=== PATIENT | female | born 1960 | race Caucasian/White ===

== ENCOUNTER → 2016-11-19 | Outpatient (CLI) | payer BC ==
--- NOTE | 2016-11-20 10:18 | MM ---
Reason for exam: screening (asymptomatic). Last mammogram was performed 1 year and 10 months ago. History: Patient is postmenopausal and has history of other cancer at age 44. Took hormonal contraceptives for 10 years. Physical Findings: A clinical breast exam by your physician is recommended on an annual basis and results should be correlated with mammographic findings. MG 3D Screening Mammo W/Cad Bilateral CC and MLO view(s) were taken. Prior study comparison: January 07, 2015, bilateral MG 3d screening mammo w/cad. July 01, 2012, bilateral digital screening mammo w/CAD. There are scattered fibroglandular densities. There is no discrete abnormality. No significant changes when compared with prior studies. ASSESSMENT: Negative, BI-RAD 1 RECOMMENDATION: Routine screening mammogram of both breasts in 1 year.
== END | disposition home or self-care (01) ==
LOC: RADMAMWWP 16:19
PROVIDERS: ATTEND Family Medicine
DX: Z12.31 Encounter for screening mammogram for malignant neoplasm of breast (principal)
CPT/HCPCS: 77063; G0202

== ENCOUNTER 2017-01-30 11:34 | Day surgery (SDC) | payer BC ==
[2017-01-28 11:43] VITALS: BMI 26.6
[~2017-01-30 11:34] MED LIST: LACTATED RINGERS 1,000 ML IV SCH; LIDOCAINE 1% 20 ML VIAL (10MG/ML) FOR IV START INTRADERMA PRN
[2017-01-30 13:16] VITALS: TEMP 97.6
[2017-01-30] MEDS ORDERED: PROPOFOL 10 MG/ML 20 ML VIAL IV ONE (14:02)
--- NOTE | 2017-01-30 14:11 | P.GSHP ---
History of Present Illness H&P Date: 01/30/17 Chief Complaint: Screening colonoscopy This is a 56-year-old female who presents today for screening colonoscopy. Her last colonoscopy was a prostate 4 years ago. She had a colon polyp at that time. Past Medical History Past Medical History: No Reported History History of Any Multi-Drug Resistant Organisms: None Reported Past Surgical History: Hysterectomy Past Anesthesia/Blood Transfusion Reactions: No Reported Reaction Smoking Status: Never smoker - Past Family History Father Family Medical History: Cancer Additional Family Medical History / Comment(s): leukemia Medications and Allergies Home Medications Medication Instructions Recorded Confirmed Type Cholecalciferol [Vitamin D3] 1,000 unit PO DAILY 01/28/17 01/30/17 History Glucosam/Ziggy-Msm1/C/Zeb/Bosw 1 each PO DAILY 01/28/17 01/30/17 History [Glucosamine-Chondroitin Tablet] Allergies Allergy/AdvReac Type Severity Reaction Status Date / Time No Known Allergies Allergy Verified 01/28/17 11:39 Surgical - Exam Vital Signs Temp Pulse Resp BP Pulse Ox 97.6 F 77 16 137/77 99 01/30/17 13:15 01/30/17 13:15 01/30/17 13:15 01/30/17 13:15 01/30/17 13:15 - General well developed, no distress - Eyes PERRL - ENT normal pinna - Neck no masses - Respiratory normal expansion - Cardiovascular Rhythm: regular - Abdomen Abdomen: soft, non tender Assessment and Plan Assessment: History of colon Polyp. We'll perform colonoscopy.
--- NOTE | 2017-01-30 14:32 | P.OP ---
Date of Procedure: 01/30/17 Preoperative Diagnosis: Screening colonoscopy Postoperative Diagnosis: Rectal polyp Procedure(s) Performed: Colonoscopy Anesthesia: MAC Surgeon: Venkatesh Sterling Pathology: other (Rectal polyp) Condition: stable Disposition: PACU Description of Procedure: The patient's placed on the endoscopy table in the lateral position. She received IV sedation. Digital rectal exam was performed which revealed no abnormalities. The flexible colonoscope was then placed patient anus and passed throughout the entire colon. The ileocecal valve was visualized. The cecum ascending and transverse colon appeared normal. The descending and; was normal. Scope was then brought back the rectum and this appeared normal except for a small hyperplastic polyp and this is removed with a forcep. Scope was withdrawn for patient.
[2017-01-30 14:33] VITALS: RESP 18
[2017-01-30 15:11] VITALS: BP 139/67; PULSE 58
--- NOTE | 2017-02-06 05:25 | CDI ---
Date: 02/06/17 CDS/Supervisor [employer] Name: Mickie Navarrete Phone: If you have a question, contact Maru Saleem, Salon Manager at M-F 8:30 am to 6pm. Patient Name: Maru Kaiser Admit Date: 01/30/17 Discharge Date: 01/30/17 ATTENTION: The Clinical Documentation Specialists (CDI) and [facility] Coding Staff appreciate your assistance in clarifying documentation. Please respond to the clarification below the line at the bottom and electronically sign. The CDI & [facility] Coding staff will review the response and follow-up if needed. Please note: Queries are made part of the Legal Health Record. If you have any questions, please contact the author of this message via ITS or call the Salon Manager. Dr. Sterling, Please provide clarification whether the polyp was removed with hot or cold forceps. Thank you for your assistance. cold forcep MTDD
== END 2017-01-30 15:29 | disposition home or self-care (01) ==
LOC: ORWHC2ENDO 11:34
PROVIDERS: ATTEND Surgery
DX: Z12.11 Encounter for screening for malignant neoplasm of colon (principal); K62.1 Rectal polyp; Z86.010 Personal history of colon polyps; Z80.6 Family history of leukemia
CPT/HCPCS: 88305; 45380; J2704

== ENCOUNTER → 2017-11-22 | Outpatient (CLI) | payer BC ==
--- NOTE | 2017-11-26 09:42 | MM ---
Reason for exam: screening (asymptomatic). Last mammogram was performed 1 year ago. History: Patient is postmenopausal and has history of other cancer at age 44. Took hormonal contraceptives for 10 years. Physical Findings: A clinical breast exam by your physician is recommended on an annual basis and results should be correlated with mammographic findings. MG 3D Screening Mammo W/Cad Bilateral CC and MLO view(s) were taken. Prior study comparison: November 19, 2016, bilateral MG 3d screening mammo w/cad. January 07, 2015, bilateral MG 3d screening mammo w/cad. The breast tissue is heterogeneously dense. This may lower the sensitivity of mammography. No significant changes when compared with prior studies. ASSESSMENT: Negative, BI-RAD 1 RECOMMENDATION: Routine screening mammogram of both breasts in 1 year.
== END | disposition home or self-care (01) ==
LOC: RADMAMWWP 16:39
PROVIDERS: ATTEND Family Medicine
DX: Z12.31 Encounter for screening mammogram for malignant neoplasm of breast (principal)
CPT/HCPCS: 77063; 77067

== ENCOUNTER 2018-04-04 08:39 | Day surgery (SDC) | payer BC ==
[2018-04-03 08:34] VITALS: BMI 26.6
--- NOTE | 2018-04-04 05:03 | HP ---
HISTORY AND PHYSICAL CHIEF COMPLAINT: Fluid in the left ear. HISTORY OF THE PRESENT ILLNESS: This patient is a 57-year-old female who was recently seen in my office complaining of having a plugged sensation mainly in her left ear for approximately 10 days. She stated that she had been previously placed on prednisone and Augmentin without any significant improvement. She has a history of seasonal allergies. At the time that she was seen in my office clinical examination of the ears revealed the left tympanic membrane was dull with evidence of definite fluid in the left middle ear space and the right tympanic membrane was retracted suggesting negative pressure in the right ear. The patient was placed on a 10-day course of dexamethasone and was seen back for followup. Approximately 10 days later, the patient returned for a clinical recheck and at that time, she stated that the left ear was worse and in fact the right ear had seemed to be plugged. Clinical examination revealed she now had chronic bilateral serous otitis media so-called glue ears. It was recommended that the patient undergo a bilateral myringotomy with insertion of ventilation tubes under IV sedation MAC. PAST MEDICAL HISTORY: Past medical history reveals that she has no allergies to medications. Her only current medications are wtby-tsr-xyrexbe vitamins. She has a possible allergy to RITALIN. Previous surgeries include a total hysterectomy, removal of skin cancer. She has 3 para, 3 , 0 miscarriage. REVIEW OF SYSTEMS: The review of systems is essentially unremarkable. PHYSICAL EXAMINATION: This patient is a very pleasant 57-year-old female who is alert and cooperative. HEENT EXAMINATION: Patient is normocephalic. Both tympanic membranes appear to be dull with fluid in both middle ear spaces. Pupils are equal, round, reactive to light and accommodation. Extraocular movements are within normal limits. Intranasal examination reveals moderate to severe septal deviation to the left with bilateral compensatory hypertrophy of the inferior turbinates. There is a moderate amount of clear mucus on the mucous membranes draining down the posterior pharynx. Palpation of the neck, cranial nerves 2 through 12 and the remainder of the head and neck exam are all within normal limits. CHEST/CARDIOVASCULAR: Both lung sinclair are clear to percussion and auscultation. The patient is in regular sinus rhythm. S1, S2 are present without evidence of any murmurs S3s or S4. ABDOMEN: There is no evidence of any masses, megaly or tenderness. The abdomen is soft. Skin is unremarkable. Musculoskeletal and neurological are within normal limits. PELVIC/RECTAL EXAM: The pelvic and rectal exam is deferred at this time because the patient has this done on a regular basis at her family physician's office. The remainder of physical exam is essentially unremarkable. IMPRESSION: Chronic bilateral serous otitis media. PLAN: The patient is scheduled to undergo a bilateral myringotomy with insertion of ventilation tubes under general anesthesia. ATTENTION RNS IN THE PRE-SURGICAL AREA: I have not ordered any pre-surgical prophylactic antibiotics for this patient. If the pharmacy department sends any pre- surgical prophylactic antibiotics to the pre-surgical area for this patient, that order should be cancelled, the medication should be returned to the pharmacy, and make sure that the patient's account is credited appropriately. I have discussed the risks, benefits and alternative therapies for the above-mentioned procedure and for both sedation/analgesia as well as necessary blood product administration, if indicated, as they pertain to this patient. The patient has indicated his or her understanding and acceptance of the risks and procedures discussed. MMODL / IJN: [id number] /
[~2018-04-04 08:39] MED LIST changes: +HYDROmorphone 0.5 MG/0.5 ML SYRINGE IVP PRN; +MIDAZOLAM 2 MG/2 ML VIAL IV PRN; +ONDANSETRON 4 MG/2 ML VIAL IVP PRN; +Pre Op ABX Message 1 EACH MISC MISCELLANE ONE
[2018-04-04] MEDS ORDERED: LACTATED RINGERS 1,000 ML IV ONE (09:12)
[2018-04-04] MEDS ORDERED: OFLOXACIN 0.3% OTIC DROPS 5 ML BTL BOTH EARS ONE (09:43)
[2018-04-04] MEDS ORDERED: fentaNYL (PF) 50 MCG/ML 2 ML AMP ONE (10:16)
[2018-04-04] MEDS ORDERED: MIDAZOLAM 2 MG/2 ML VIAL ONE (10:16)
[2018-04-04] MEDS ORDERED: PROPOFOL 10 MG/ML 20 ML VIAL IV ONE (10:16)
[2018-04-04] MEDS ORDERED: IV FLUID CONTINUATION 1,000 ML IV ONE (11:03)
[2018-04-04 11:09] VITALS: TEMP 97.4
[2018-04-04 11:57] VITALS: BP 123/77; PULSE 69; RESP 16
--- NOTE | 2018-04-07 22:01 | OP ---
OPERATIVE REPORT DATE OF SURGERY: 04/04/2018 PREOPERATIVE DIAGNOSIS: Chronic bilateral serous otitis media. POSTOPERATIVE DIAGNOSIS: Chronic bilateral serous otitis media. ANESTHESIA: General. OPERATIVE PROCEDURE: Bilateral myringotomy with insertion of Activent ventilation tubes. SURGEON: Dr. Cavazos. COMPLICATIONS: None. PROCEDURE: The patient was placed on the Operating table in the supine position after uneventful induction and IV sedation, satisfactory general anesthesia was obtained. Next, the operating microscope was brought into position over the patient's right ear where after insertion of a #3 aural speculum, the external canal was cleansed of all wax and debris. The myringotomy knife was used to make an incision in the anterior inferior quadrant of the right tympanic membrane. The middle ear space was suctioned free of all fluid and a 1.1 mm Ashleigh bobbin ventilation tube was inserted without any difficulty. Attention was then directed to the left ear where the same procedure was carried out using the operating microscope, #3 aural speculum, the external auditory canal was cleansed of all wax and debris. The myringotomy knife was used to make an incision in the anterior inferior quadrant of the left tympanic membrane and the middle ear space was suctioned free of all fluid. A 1.1 mm Ashleigh bobbin ventilation tube was inserted without any difficulty. At this point, the procedure was terminated. There were no intraoperative complications. The patient tolerated the procedure well and was returned to the Recovery Room in satisfactory condition. MMODL / IJN: [id number] /
== END 2018-04-04 12:10 | disposition home or self-care (01) ==
LOC: OR 08:39
PROVIDERS: ATTEND Otolaryngology
DX: H65.23 Chronic serous otitis media, bilateral (principal); J30.2 Other seasonal allergic rhinitis; Z90.710 Acquired absence of both cervix and uterus; Z85.828 Personal history of other malignant neoplasm of skin
CPT/HCPCS: 69436; J2250; J2405; J3010; J2704

== ENCOUNTER 2018-12-03 21:39 | Observation (INO) | payer BC ==
[2018-12-03 21:42] VITALS: RESP 18
[2018-12-03] MEDS ORDERED: ASPIRIN 81 MG PO STA (21:44)
[2018-12-03 22:03] LABS: Basophils # (A) 0.1 k/uL (0-0.2); Basophils % (A) 1 %; Eosinophils # (A) 0.2 k/uL (0-0.7); Eosinophils % (A) 3 %; HCT 39.7 % (34.0-46.0); HGB 13.8 gm/dL (11.4-16.0); Lymphocytes # (A) 2.1 k/uL (1.0-4.8); Lymphocytes % (A) 30 %; MCH 31.3 pg (25.0-35.0); MCHC 34.7 g/dL (31.0-37.0); MCV 90.2 fL (80.0-100.0); Mean Platelet Volume 6.2; Monocytes # (A) 0.5 k/uL (0-1.0); Monocytes % (A) 6 %; Neutrophils # (A) 4.1 k/uL (1.3-7.7); Neutrophils % (A) 58 %; Platelet Count 308 k/uL (150-450); RDW 12.1 % (11.5-15.5); WBC 7.1 k/uL (3.8-10.6)
[2018-12-03 22:09] LABS: Albumin 4.4 g/dL (3.5-5.0); Total Bilirubin 0.5 mg/dL (0.2-1.3); Total Protein 7.2 g/dL (6.3-8.2)
[2018-12-03 22:12] LABS: INR 0.9 (<1.2); Partial Thromboplastin Time 23.6 sec (22.0-30.0); Prothrombin Time 9.5 sec (9.0-12.0)
--- NOTE | 2018-12-03 22:25 | XR ---
EXAMINATION TYPE: XR chest 2V DATE OF EXAM: 12/03/2018 COMPARISON: NONE HISTORY: Chest pain TECHNIQUE: Frontal and lateral views of the chest are obtained. FINDINGS: Heart and mediastinum are normal. Lungs are clear. Diaphragm is normal. There is small nick cified granuloma lateral aspect of the right upper lobe. Bony thorax is intact. There is minimal scar ring at the lung apices. IMPRESSION: No active cardiopulmonary disease. Normal heart.
[2018-12-03 22:26] LABS: Calcium 9.5 mg/dL (8.4-10.2); Magnesium 1.9 mg/dL (1.6-2.3); Potassium 3.4 mmol/L (3.5-5.1)
[2018-12-03] MEDS ORDERED: NITROGLYCERIN SL TABS 0.4 MG TAB SUBLINGUAL PRN (23:43)
--- NOTE | 2018-12-03 23:43 | ED ---
Chest Pain HPI - General Chief Complaint: Chest Pain Stated Complaint: chest pain Time Seen by Provider: 12/03/18 21:43 Source: patient Mode of arrival: ambulatory Limitations: no limitations - History of Present Illness Initial Comments: Maru is a 58-year-old female presents to the emergency department today for evaluation of left-sided and retrosternal pressure-like chest pain. Patient reports that approximately 3 hours prior to arrival she developed significant pain in the left chest with associated shortness of breath but no diaphoresis or lightheadedness. Patient reports that pain is been constant since that time. She has no history of any cardiac disease pulmonary disease DVT or PE. She's never experienced chest pain like this in the past. She cannot identify any exacerbating or relieving factors. She does feel slightly more comfortable and sitting up. - Related Data Home Medications Medication Instructions Recorded Confirmed Aspirin EC [Ecotrin Low Dose] 81 mg PO DAILY 12/03/18 12/03/18 Cetirizine HCl [Zyrtec] 10 mg PO DAILY 12/03/18 12/03/18 Cholecalciferol [Vitamin D3 (25 1,000 unit PO DAILY 12/03/18 12/03/18 Mcg = 1000 Iu)] Escitalopram [Lexapro] 5 mg PO DAILY 12/03/18 12/03/18 Fish Oil/Dha/Epa [Fish Oil 1,200 1 cap PO DAILY 12/03/18 12/03/18 mg Fish Oil] Glucosamine Sulfate 500 mg PO DAILY 12/03/18 12/03/18 Lifitegrast [Xiidra] 1 drop BOTH EYES BID 12/03/18 12/03/18 Methylphenidate HCl [Ritalin] 20 mg PO TID 12/03/18 12/03/18 Ubidecarenone [Co Q-10] 200 mg PO DAILY 12/03/18 12/03/18 Allergies Allergy/AdvReac Type Severity Reaction Status Date / Time No Known Allergies Allergy Verified 12/03/18 22:51 Review of Systems ROS Statement: Those systems with pertinent positive or pertinent negative responses have been documented in the HPI. ROS Other: All systems not noted in ROS Statement are negative. Past Medical History Past Medical History: Cancer Additional Past Medical History / Comment(s): hx skin cancer, History of Any Multi-Drug Resistant Organisms: None Reported Past Surgical History: Ear Surgery, Hysterectomy Past Anesthesia/Blood Transfusion Reactions: No Reported Reaction Past Psychological History: No Psychological Hx Reported Smoking Status: Never smoker Past Alcohol Use History: None Reported Past Drug Use History: None Reported - Past Family History Father Family Medical History: Cancer Additional Family Medical History / Comment(s): leukemia General Exam - General Exam Comments Initial Comments: Physical Exam GENERAL: Patient is well-developed and well-nourished. Patient is nontoxic and well- hydrated and is in no distress. HENT: Normocephalic, Atraumatic. EYES: PERRL, EOMI PULMONARY: Unlabored respirations. No audible rales rhonchi or wheezing was noted. CARDIOVASCULAR: There is a regular rate and rhythm without any murmurs gallops or rubs. ABDOMEN: Soft and nontender with normal bowel sounds. SKIN: Skin is clear with no lesions or rashes and otherwise unremarkable. : Deferred NEUROLOGIC: Patient is alert and oriented x3. Moving all extremities spontaneously MUSCULOSKELETAL: Normal extremities with adequate strength and full range of motion. No lower extremity swelling or edema. No calf tenderness. PSYCHIATRIC: Normal psychiatric evaluation. Limitations: no limitations Course Vital Signs 12/03/18 12/03/18 12/03/18 21:40 22:00 23:07 Temperature 97.8 F Pulse Rate 74 56 L 63 Respiratory 18 18 18 Rate Blood Pressure 148/79 137/79 136/67 O2 Sat by Pulse 99 97 97 Oximetry 12/04/18 00:30 Temperature 97.5 F L Pulse Rate 55 L Respiratory 18 Rate Blood Pressure 141/67 O2 Sat by Pulse 96 Oximetry Chest Pain MDM - MDM The patient was seen and evaluated upon arrival the emergency department this is a 58-year-old female with no cardiac history presenting with a sided chest pain EKG was nonischemic Cardiac workup was initiated D-dimer is negative initial troponin is negative chest x-ray is unremarkable Given the patient's age persistent left-sided chest pain we will plan to place her in observation for further evaluation by cardiology. Patient is agreeable. Patient care was discussed with Dr. Hou who agrees with plan. Admission orders, serial troponins, repeat EKG and echo for the morning were ordered. Disposition Clinical Impression: Chest pain Disposition: ADMITTED IP TO THIS HOSP Condition: Stable
[2018-12-04 04:10] LABS: Cholesterol 211 mg/dL (<200); HDL Cholesterol 66 mg/dL (40-60); LDL Cholesterol,Calculated 129 mg/dL (0-99); Triglycerides 80 mg/dL (<150)
[2018-12-04] MEDS ORDERED: HYDROcodone/APAP 5-325MG 1 EACH TAB PO PRN (07:11)
[2018-12-04 07:47] VITALS: PULSE 58
[2018-12-04] MEDS ORDERED: ASPIRIN 81 MG PO SCH (09:00)
[2018-12-04] MEDS ORDERED: ASPIRIN 325 MG TAB PO SCH (09:00)
--- NOTE | 2018-12-04 11:03 | P.CRDCN ---
History of Present Illness History of present illness: This is a pleasant 58-year-old female in no significant past medical history. She denies history of coronary artery disease, hypertension, dyslipidemia or diabetes mellitus. She does not follow with a rib puller for any reason. She is seen and examined resting comfortably in bed undergoing an echocardiogram. She states yesterday while laying down watching television approximately 1 hours after eating she felt a heavy burning sensation in the left precordial region. There was no radiation to the arm, back, neck or jaw. She felt a fluttering sensation in the base of her neck and felt mildly short of breath. The discomfort intensified with deep inspiration and hurts when she moves her torso. EKG reveals sinus mechanism with no acute ST or T-wave abnormalities. Chest xray is negative for an acute cardiopulmonary process. Laboratory data reviewed, CBC unremarkable, d-dimer 0.28, sodium 139, potassium 3.4, creatinine 1.08, AST 48, ALT 42, cardiac enzymes negative 3, LDL 129. She takes no daily cardiac medications. At the time of my exam: CONSTITUTIONAL: Denies fever. Denies chills. EYES: Denies blurred vision. Denies vision changes. Denies eye pain. EARS, NOSE, MOUTH & THROAT: Denies headache. Denies sore throat. Denies ear pain. CARDIOVASCULAR: Complains of pleuritic chest pain. Denies shortness of breath. Denies orthopnea. Denies PND. Denies palpitations. RESPIRATORY: Denies cough. GASTROINTESTINAL: Denies abdominal pain. Denies diarrhea. Denies constipation. Denies nausea. Denies vomiting. MUSCULOSKELETAL: Denies myalgias. INTEGUMENTARY: Denies pruitis. Denies rash. NEUROLOGIC: Denies numbness. Denies tingling. Denies weakness. PSYCHIATRIC: Denies anxiety. Denies depression. ENDOCRINE: Denies fatigue. Denies weight change. Denies polydipsia. Denies polyurina. GENITOURINARY: Denies burning, hematuria or urgency with micturation. HEMATOLOGIC: Denies history of anemia. Denies bleeding. Blood pressure 119/73 heart rate 58 afebrile maintaining oxygen saturation on room air GENERAL: This is a 58-year-old female in no apparent distress at the time of my examination. HEENT: Head is atraumatic, normocephalic. Pupils are equal, round. Sclerae anicteric. Conjunctivae are clear. Mucous membranes of the mouth are moist. Neck is supple. There is no jugular venous distention. No carotid bruit is heard. LUNGS: Clear to auscultation no wheezes, rales or rhonchi. Positive chest wall tenderness is noted on palpation and with deep breathing. HEART: Regular rate and rhythm without murmurs, rubs or gallops. S1 and S2 heard. ABDOMEN: Soft, nontender. Bowel sounds are heard. No organomegaly noted. EXTREMITIES: No evidence of peripheral edema and no calf tenderness noted. VASCULAR: Radial and dorsalis pedis pulses palpated, no evidence of clubbing. NEUROLOGIC: Patient is awake, alert and oriented x3. ASSESSMENT Pleuritic chest pain, atypical for angina. An acute coronary event has been ruled out. Elevated liver enzymes, unknown etiology Dyslipidemia PLAN An acute coronary event has been ruled out. Pain is atypical for angina with pleuritic features and reproducible on palpation. Echocardiogram has been obtained and will be reviewed. Ongoing medical management and evaluation. Thank you kindly for this consultation. Nurse Practitioner note has been reviewed, I agree with a documented findings and plan of care. Patient was seen and examined. Past Medical History Past Medical History: Cancer Additional Past Medical History / Comment(s): hx skin cancer, History of Any Multi-Drug Resistant Organisms: None Reported Past Surgical History: Ear Surgery, Hysterectomy Past Anesthesia/Blood Transfusion Reactions: No Reported Reaction Past Psychological History: No Psychological Hx Reported Smoking Status: Never smoker Past Alcohol Use History: None Reported Past Drug Use History: None Reported - Past Family History Father Family Medical History: Cancer Additional Family Medical History / Comment(s): leukemia Medications and Allergies Home Medications Medication Instructions Recorded Confirmed Type Aspirin EC [Ecotrin Low Dose] 81 mg PO DAILY 12/03/18 12/03/18 History Cetirizine HCl [Zyrtec] 10 mg PO DAILY 12/03/18 12/03/18 History Cholecalciferol [Vitamin D3 (25 1,000 unit PO DAILY 12/03/18 12/03/18 History Mcg = 1000 Iu)] Escitalopram [Lexapro] 5 mg PO DAILY 12/03/18 12/03/18 History Fish Oil/Dha/Epa [Fish Oil 1,200 1 cap PO DAILY 12/03/18 12/03/18 History mg Fish Oil] Glucosamine Sulfate 500 mg PO DAILY 12/03/18 12/03/18 History Lifitegrast [Xiidra] 1 drop BOTH EYES BID 12/03/18 12/03/18 History Methylphenidate HCl [Ritalin] 20 mg PO TID 12/03/18 12/03/18 History Ubidecarenone [Co Q-10] 200 mg PO DAILY 12/03/18 12/03/18 History Allergies Allergy/AdvReac Type Severity Reaction Status Date / Time No Known Allergies Allergy Verified 12/03/18 22:51 Physical Exam Vitals: Vital Signs Temp Pulse Pulse Resp BP BP Pulse Ox 12/04/18 07:46 98.2 F 58 L 18 119/73 97 12/04/18 04:56 97.7 F 53 L 18 125/67 97 12/04/18 03:39 56 L 18 12/04/18 00:56 97.6 F 59 L 18 145/85 97 12/04/18 00:30 97.5 F L 55 L 18 141/67 96 12/03/18 23:07 63 18 136/67 97 12/03/18 22:00 56 L 18 137/79 97 12/03/18 21:40 97.8 F 74 18 148/79 99 Intake and Output 12/03/18 12/04/18 12/04/18 22:59 06:59 14:59 Other: Weight 79.379 kg Results 12/03/18 21:55 12/03/18 21:55 Cardiac Enzymes 12/03/18 12/03/18 12/04/18 Range/Units 21:55 21:55 03:37 AST 48 H (14-36) U/L Troponin I <0.012 <0.012 (0.000-0.034) ng/mL Coagulation 12/03/18 Range/Units 21:55 PT 9.5 (9.0-12.0) sec APTT 23.6 (22.0-30.0) sec Lipids 12/04/18 Range/Units 03:37 Triglycerides 80 (<150) mg/dL Cholesterol 211 H (<200) mg/dL HDL Cholesterol 66 H (40-60) mg/dL CBC 12/03/18 Range/Units 21:55 WBC 7.1 (3.8-10.6) k/uL RBC 4.40 (3.80-5.40) m/uL Hgb 13.8 (11.4-16.0) gm/dL Hct 39.7 (34.0-46.0) % Plt Count 308 (150-450) k/uL Comprehensive Metabolic Panel 12/03/18 Range/Units 21:55 Sodium 139 (137-145) mmol/L Potassium 3.4 L (3.5-5.1) mmol/L Chloride 101 (98-107) mmol/L Carbon Dioxide 27 (22-30) mmol/L BUN 36 H (7-17) mg/dL Creatinine 1.08 H (0.52-1.04) mg/dL Glucose 104 H (74-99) mg/dL Calcium 9.5 (8.4-10.2) mg/dL AST 48 H (14-36) U/L ALT 142 H (9-52) U/L Alkaline Phosphatase 95 (38-126) U/L Total Protein 7.2 (6.3-8.2) g/dL Albumin 4.4 (3.5-5.0) g/dL Current Medications Generic Name Dose Route Start Last Admin Trade Name Freq PRN Reason Stop Dose Admin Hydrocodone Bitart/Acetaminophen 1 each 12/04/18 07:11 [place] 5-325 PO Q6HR PRN Pain Aspirin 325 mg 12/04/18 09:00 Aspirin PO DAILY DAVID Nitroglycerin 0.4 mg 12/03/18 23:43 12/04/18 01:19 Nitrostat SUBLINGUAL 0.4 mg Q5M PRN Administration Chest Pain Intake and Output 12/03/18 12/04/18 12/04/18 22:59 06:59 14:59 Other: Weight 79.379 kg 12/03/18 21:55 12/03/18 21:55
[2018-12-04 11:35] VITALS: BP 131/70; TEMP 98.3
--- NOTE | 2018-12-04 11:37 | ECHOF ---
Referral Reason:chest pain MEASUREMENTS -------- HEIGHT: 172.7 cm WEIGHT: 79.4 kg BP: 125/67 RVIDd: 2.7 cm (< 3.3) IVSd: 1.1 cm (0.6 - 1.1) LVIDd: 3.7 cm (3.9 - 5.3) LVPWd: 1.1 cm (0.6 - 1.1) IVSs: 1.4 cm LVIDs: 3.0 cm LVPWs: 1.5 cm LA Diam: 2.9 cm (2.7 - 3.8) LAESV Index (A-L): 26.24 ml/m Ao Diam: 2.9 cm (2.0 - 3.7) AV Cusp: 1.9 cm (1.5 - 2.6) MV EXCURSION: 13.536 mm (> 18.000) MV EF SLOPE: 93 mm/s (70 - 150) EPSS: 0.4 cm MV E Vincent: 0.69 m/s MV DecT: 430 ms MV A Vincent: 0.93 m/s MV E/A Ratio: 0.74 RAP: 5.00 mmHg RVSP: 25.41 mmHg FINDINGS -------- Sinus rhythm. This was a technically good study. The left ventricular size is normal. Left ventricular wall thickness is normal. Overall left vent ricular systolic function is normal with, an EF between 60 - 65 %. The right ventricle is normal in size. Normal LA size by volume 22+/-6 ml/m2. The right atrium is normal in size. Interatrial and interventricular septum intact. The aortic valve is trileaflet and appears structurally normal. The mitral valve is normal. Mild tricuspid regurgitation present. Right ventricular systolic pressure is normal at < 35 mmHg. There is no pulmonic regurgitation present. The aortic root size is normal. Normal inferior vena cava with normal inspiratory collapse consistent with estimated right atrial pre ssure of 5 mmHg. There is no pericardial effusion. CONCLUSIONS -------- 1. Sinus rhythm. 2. This was a technically good study. 3. The left ventricular size is normal. 4. Left ventricular wall thickness is normal. 5. Overall left ventricular systolic function is normal with, an EF between 60 - 65 %. 6. The right ventricle is normal in size. 7. Normal LA size by volume 22+/-6 ml/m2. 8. The right atrium is normal in size. 9. Interatrial and interventricular septum intact. 10. The aortic valve is trileaflet and appears structurally normal. 11. The mitral valve is normal. 12. Mild tricuspid regurgitation present. 13. Right ventricular systolic pressure is normal at < 35 mmHg. 14. There is no pulmonic regurgitation present. 15. The aortic root size is normal. 16. Normal inferior vena cava with normal inspiratory collapse consistent with estimated right atrial pressure of 5 mmHg. 17. There is no pericardial effusion. CHUCKING MACHINE SET UP OPERATOR: Jen Paredes RDCS
--- NOTE | 2018-12-08 18:21 | P.HPIM ---
History of Present Illness H&P Date: 12/04/18 Chief Complaint: chest pain Maru Kaiser is a 58 yo F with no significant PMH who presented to the ED complaining of sharp L sided chest discomfort since last night. She states that yesterday while watching TV after dinner she began to experience sharp L sided chest pain. The pain did not radiate and pt also noticed a fluttery feeling in her chest. Her chest pain continued approximately an hour then she presented to the ED. She denies any personal history of hypertension, diabetes, HLD and is a nonsmoker. In the ED, her CXR was clear, EKG normal, troponin negative. Review of Systems All systems: negative Constitutional: Denies chills, Denies fever Eyes: denies blurred vision, denies pain Ears, nose, mouth and throat: Denies headache, Denies sore throat Cardiovascular: Reports chest pain, Reports palpitations, Denies decreased exercise tolerance, Denies dyspnea on exertion, Denies high blood pressure, Denies leg edema, Denies shortness of breath Respiratory: Denies cough Gastrointestinal: Denies abdominal pain, Denies diarrhea, Denies nausea, Denies vomiting Genitourinary: Denies dysuria, Denies hematuria Musculoskeletal: Denies myalgias Integumentary: Denies pruritus, Denies rash Neurological: Denies numbness, Denies weakness Psychiatric: Denies anxiety, Denies depression Endocrine: Denies fatigue, Denies weight change Past Medical History Past Medical History: Cancer Additional Past Medical History / Comment(s): hx skin cancer, History of Any Multi-Drug Resistant Organisms: None Reported Past Surgical History: Ear Surgery, Hysterectomy Past Anesthesia/Blood Transfusion Reactions: No Reported Reaction Past Psychological History: No Psychological Hx Reported Smoking Status: Never smoker Past Alcohol Use History: None Reported Past Drug Use History: None Reported - Past Family History Father Family Medical History: Cancer Additional Family Medical History / Comment(s): leukemia Medications and Allergies Home Medications Medication Instructions Recorded Confirmed Type Aspirin EC [Ecotrin Low Dose] 81 mg PO DAILY 12/03/18 12/03/18 History Cetirizine HCl [Zyrtec] 10 mg PO DAILY 12/03/18 12/03/18 History Cholecalciferol [Vitamin D3 (25 1,000 unit PO DAILY 12/03/18 12/03/18 History Mcg = 1000 Iu)] Escitalopram [Lexapro] 5 mg PO DAILY 12/03/18 12/03/18 History Fish Oil/Dha/Epa [Fish Oil 1,200 1 cap PO DAILY 12/03/18 12/03/18 History mg Fish Oil] Glucosamine Sulfate 500 mg PO DAILY 12/03/18 12/03/18 History Lifitegrast [Xiidra] 1 drop BOTH EYES BID 12/03/18 12/03/18 History Methylphenidate HCl [Ritalin] 20 mg PO TID 12/03/18 12/03/18 History Ubidecarenone [Co Q-10] 200 mg PO DAILY 12/03/18 12/03/18 History Allergies Allergy/AdvReac Type Severity Reaction Status Date / Time No Known Allergies Allergy Verified 12/03/18 22:51 Physical Exam General: well nourished, well developed, NAD. Vitals reviewed Eyes: PERRL, EOMI, conjunctiva normal HENT: normocephalic, mucus membranes moist Neck: supple, no JVD Lungs: normal respiratory effort, no wheezes or rales CV: Regular rate and rhythm, no murmur. Peripheral pulses 2+ Abdomen: soft, nondistended, no organomegaly Lymph: no cervical or axillary LAD Skin: warm and dry. Results CBC & Chem 7: 12/03/18 21:55 12/03/18 21:55 Thrombosis Risk Factor Assmnt - Choose All That Apply Any of the Below Risk Factors Present?: Yes Each Factor Represents 1 point: Age 41-60 years Other Risk Factors: No Other congenital or acquired thrombophilia - If yes, enter type in comment: No Thrombosis Risk Factor Assessment Total Risk Factor Score: 1 Thrombosis Risk Factor Assessment Level: Low Risk Assessment and Plan (1) Costochondral chest pain Status: Acute Code(s): R07.1 - CHEST PAIN ON BREATHING SNOMED Code(s): 307169281 (2) Chest pain Status: Acute Code(s): R07.9 - CHEST PAIN, UNSPECIFIED SNOMED Code(s): 86113169 Plan: 1. Chest pain. ACS ruled out. Cardiology consulted. Echo in process
--- NOTE | 2018-12-08 18:23 | P.DS ---
Providers Date of admission: 12/03/18 23:43 Expected date of discharge: 12/04/18 Attending physician: Lane Weiss MD Consults: 12/03/18 23:43 Consult Physician Urgent Consulting Provider: Brent Raymond Consult Reason/Comments: chest pain - moderate risk Do you want consulting provider notified?: Yes, Notify in am Primary care physician: Clarisa Navarro - Discharge Diagnosis(es) (1) Costochondral chest pain Status: Acute (2) Chest pain Status: Acute Hospital Course: Maru Kaiser is a 58 yo F with no significant PMH who presented to the ED complaining of sharp L sided chest discomfort since last night. She states that yesterday while watching TV after dinner she began to experience sharp L sided chest pain. The pain did not radiate and pt also noticed a fluttery feeling in her chest. Her chest pain continued approximately an hour then she presented to the ED. She denies any personal history of hypertension, diabetes, HLD and is a nonsmoker. In the ED, her CXR was clear, EKG normal, troponin negative. Pt underwent an echocardiogram, which was unremarkable. She was cleared by cardiology. She is discharged in stable condition and recommended to follow up with her PCP. Patient Condition at Discharge: Stable Plan - Discharge Summary Discharge Rx Participant: No New Discharge Prescriptions: Continue Ubidecarenone [Co Q-10] 200 mg PO DAILY Lifitegrast [Xiidra] 1 drop BOTH EYES BID Fish Oil/Dha/Epa [Fish Oil 1,200 mg Fish Oil] 1 cap PO DAILY Aspirin EC [Ecotrin Low Dose] 81 mg PO DAILY Methylphenidate HCl [Ritalin] 20 mg PO TID Glucosamine Sulfate 500 mg PO DAILY Escitalopram [Lexapro] 5 mg PO DAILY Cholecalciferol [Vitamin D3 (25 Mcg = 1000 Iu)] 1,000 unit PO DAILY Cetirizine HCl [Zyrtec] 10 mg PO DAILY Discharge Medication List Aspirin EC [Ecotrin Low Dose] 81 mg PO DAILY 12/03/18 [History] Cetirizine HCl [Zyrtec] 10 mg PO DAILY 12/03/18 [History] Cholecalciferol [Vitamin D3 (25 Mcg = 1000 Iu)] 1,000 unit PO DAILY 12/03/18 [History] Escitalopram [Lexapro] 5 mg PO DAILY 12/03/18 [History] Fish Oil/Dha/Epa [Fish Oil 1,200 mg Fish Oil] 1 cap PO DAILY 12/03/18 [History] Glucosamine Sulfate 500 mg PO DAILY 12/03/18 [History] Lifitegrast [Xiidra] 1 drop BOTH EYES BID 12/03/18 [History] Methylphenidate HCl [Ritalin] 20 mg PO TID 12/03/18 [History] Ubidecarenone [Co Q-10] 200 mg PO DAILY 12/03/18 [History] Follow up Appointment(s)/Referral(s): Sandra Pacheco MD [STAFF PHYSICIAN] - 1 Week (follow up for outpatient stress test.) Clarisa Navarro DO [Primary Care Provider] - 1-2 days Patient Instructions/Handouts: Chest Pain (DC), Acute Bronchitis (ED) Discharge Disposition: HOME SELF-CARE
== END 2018-12-04 12:56 | disposition home or self-care (01) ==
LOC: EC 21:39 → 1SOBS 23:43
PROVIDERS: ADMIT Family Medicine; ATTEND Family Medicine
DX: R07.1 Chest pain on breathing (principal); R07.81 Pleurodynia; E78.5 Hyperlipidemia, unspecified; R74.8 Abnormal levels of other serum enzymes; Z79.82 Long term (current) use of aspirin; Z79.899 Other long term (current) drug therapy; Z85.828 Personal history of other malignant neoplasm of skin; Z90.710 Acquired absence of both cervix and uterus; Z80.6 Family history of leukemia
CPT/HCPCS: 93005 ×2; 99285; 36415; 93306; 85379; 83880; 80061; 80053; 83690; 83735; 84484 ×2; 85025; 85610; 85730; 71046; G0378

== ENCOUNTER 2021-11-20 09:28 | Observation (INO) | payer BC ==
[2021-11-20 10:09] LABS: Basophils % (A) 0 %; Eosinophils # (A) 0.2 k/uL (0-0.7); Eosinophils % (A) 4 %; HCT 39.1 % (34.0-46.0); HGB 13.8 gm/dL (11.4-16.0); Lymphocytes % (A) 21 %; MCH 31.2 pg (25.0-35.0); MCHC 35.3 g/dL (31.0-37.0); MCV 88.5 fL (80.0-100.0); Mean Platelet Volume 8.2; Monocytes # (A) 0.2 k/uL (0-1.0); Monocytes % (A) 5 %; Neutrophils # (A) 3.2 k/uL (1.3-7.7); Neutrophils % (A) 68 %; Platelet Count 258 k/uL (150-450); RBC 4.42 m/uL (3.80-5.40); RDW 12.2 % (11.5-15.5); WBC 4.7 k/uL (3.8-10.6)
[2021-11-20 10:31] LABS: ALT 33 U/L (4-34); AST 45 U/L (14-36); African American GFR (CKD) >90 (>60 ml/min/1.73 sqM); Albumin 4.5 g/dL (3.5-5.0); Alkaline Phosphatase 75 U/L (38-126); Anion Gap 9 mmol/L; Blood Urea Nitrogen 18 mg/dL (7-17); Calcium 9.2 mg/dL (8.4-10.2); Carbon Dioxide 25 mmol/L (22-30); Chloride 102 mmol/L (98-107); Glucose 107 mg/dL (74-99); Magnesium 1.9 mg/dL (1.6-2.3); Non-African American GFR(CKD) >90 (>60 ml/min/1.73 sqM); Potassium 4.1 mmol/L (3.5-5.1); Sodium 136 mmol/L (137-145); Total Bilirubin 0.8 mg/dL (0.2-1.3); Total Protein 6.7 g/dL (6.3-8.2)
--- NOTE | 2021-11-20 10:31 | XR ---
EXAMINATION TYPE: XR chest 2V DATE OF EXAM: 11/20/2021 COMPARISON: Chest x-ray 12/03/2018 HISTORY: Chest pain TECHNIQUE: Frontal and lateral views of the chest are obtained. FINDINGS: Biapical pleural thickening is present. Cardiac mediastinal silhouette is stable. Aorta is dense. There are overlying cardiac leads. Possible calcified granuloma stable in the right midlung la terally. There is no focal air space opacity, pleural effusion, or pneumothorax seen. The cardiac si lhouette size is within normal limits. The osseous structures are intact, there is a spinal curvatu re. IMPRESSION: No acute cardiopulmonary process.
[2021-11-20 10:35] LABS: INR 0.9 (<1.2); Partial Thromboplastin Time 23.2 sec (22.0-30.0); Prothrombin Time 10.2 sec (9.0-12.0)
[2021-11-20] MEDS ORDERED: MAG HYDROX/AL HYDROX/SIMETH 30 ML, HYOSCYAMINE ELIXIR 10 ML, LIDOCAINE VISCOUS 2% 10 ML PO STA ×3 (11:35)
[2021-11-20] MEDS ORDERED: ASPIRIN 325 MG TAB PO STA (11:35)
[2021-11-20] MEDS ORDERED: NALOXONE 0.4 MG/ML 1 ML VIAL IV PRN (11:37)
[2021-11-20] MEDS ORDERED: ONDANSETRON 4 MG/2 ML VIAL IVP PRN (11:37)
--- NOTE | 2021-11-20 11:43 | ED ---
General Adult HPI - General Chief complaint: Chest Pain Stated complaint: Chest pain Time Seen by Provider: 11/20/21 09:35 Source: patient, RN notes reviewed, old records reviewed Mode of arrival: ambulatory Limitations: no limitations - History of Present Illness Initial comments: 61-year-old female presenting with 2 episodes of chest pain in the past 12 hours. She states this was a substernal central chest pain, burning in nature, with associated lightheadedness. No vomiting but she did have some nausea. She has no prior history of CAD. She has no abdominal pain. No fever. - Related Data Home Medications Medication Instructions Recorded Confirmed Aspirin EC [Ecotrin Low Dose] 81 mg PO DAILY 12/03/18 12/03/18 Cetirizine HCl [Zyrtec] 10 mg PO DAILY 12/03/18 12/03/18 Cholecalciferol [Vitamin D3 (25 1,000 unit PO DAILY 12/03/18 12/03/18 Mcg = 1000 Iu)] Escitalopram [Lexapro] 5 mg PO DAILY 12/03/18 12/03/18 Fish Oil/Dha/Epa [Fish Oil 1,200 1 cap PO DAILY 12/03/18 12/03/18 mg Fish Oil] Glucosamine Sulfate 500 mg PO DAILY 12/03/18 12/03/18 Lifitegrast [Xiidra] 1 drop BOTH EYES BID 12/03/18 12/03/18 Methylphenidate HCl [Ritalin] 20 mg PO TID 12/03/18 12/03/18 Ubidecarenone [Co Q-10] 200 mg PO DAILY 12/03/18 12/03/18 Allergies Allergy/AdvReac Type Severity Reaction Status Date / Time No Known Allergies Allergy Verified 11/20/21 09:33 Review of Systems ROS Statement: Those systems with pertinent positive or pertinent negative responses have been documented in the HPI. ROS Other: All systems not noted in ROS Statement are negative. Past Medical History Past Medical History: Cancer Additional Past Medical History / Comment(s): hx skin cancer, History of Any Multi-Drug Resistant Organisms: None Reported Past Surgical History: Ear Surgery, Hysterectomy Past Anesthesia/Blood Transfusion Reactions: No Reported Reaction Past Psychological History: No Psychological Hx Reported Smoking Status: Never smoker Past Alcohol Use History: None Reported Past Drug Use History: None Reported - Past Family History Father Family Medical History: Cancer Additional Family Medical History / Comment(s): leukemia General Exam Limitations: no limitations General appearance: alert, in no apparent distress Head exam: Present: atraumatic, normocephalic Eye exam: Present: normal appearance, PERRL ENT exam: Present: normal exam Neck exam: Present: normal inspection. Absent: tenderness, meningismus Respiratory exam: Present: normal lung sounds bilaterally. Absent: respiratory distress, wheezes Cardiovascular Exam: Present: regular rate, normal rhythm GI/Abdominal exam: Present: soft. Absent: distended, tenderness, guarding, rebound Extremities exam: Present: normal inspection, normal capillary refill Neurological exam: Present: alert, oriented X3, CN II-XII intact. Absent: motor sensory deficit Psychiatric exam: Present: normal affect, normal mood Skin exam: Present: warm, dry, intact. Absent: cyanosis, diaphoretic Course Vital Signs 11/20/21 11/20/21 09:31 10:02 Temperature 97.6 F Pulse Rate 63 60 Respiratory 18 18 Rate Blood Pressure 124/75 122/77 O2 Sat by Pulse 96 95 Oximetry EKG Findings - EKG Comments: EKG Findings:: EKG: Sinus bradycardia rate 59, ID interval 145, QRS duration 78, QTC [address] segment elevation. Medical Decision Making - Medical Decision Making 61-year-old female presenting with 2 episodes of chest pain. EKG sinus rhythm without ST segment elevation. Chest x-ray is clear. Normal CBC, normal CMP, negative initial troponin. Given aspirin in the emergency department. Her symptoms have some typical features she will be placed in observation for cervical cardiac enzymes, telemetry, cardiology consultation. - Lab Data Result diagrams: 11/20/21 09:58 11/20/21 09:58 Lab Results 11/20/21 11/20/21 11/20/21 Range/Units 09:58 09:58 09:58 WBC 4.7 (3.8-10.6) k/uL RBC 4.42 (3.80-5.40) m/uL Hgb 13.8 (11.4-16.0) gm/dL Hct 39.1 (34.0-46.0) % MCV 88.5 (80.0-100.0) fL MCH 31.2 (25.0-35.0) pg MCHC 35.3 (31.0-37.0) g/dL RDW 12.2 (11.5-15.5) % Plt Count 258 (150-450) k/uL MPV 8.2 Neutrophils % 68 % Lymphocytes % 21 % Monocytes % 5 % Eosinophils % 4 % Basophils % 0 % Neutrophils # 3.2 (1.3-7.7) k/uL Lymphocytes # 1.0 (1.0-4.8) k/uL Monocytes # 0.2 (0-1.0) k/uL Eosinophils # 0.2 (0-0.7) k/uL Basophils # 0.0 (0-0.2) k/uL PT 10.2 (9.0-12.0) sec INR 0.9 (<1.2) APTT 23.2 (22.0-30.0) sec Sodium 136 L (137-145) mmol/L Potassium 4.1 (3.5-5.1) mmol/L Chloride 102 (98-107) mmol/L Carbon Dioxide 25 (22-30) mmol/L Anion Gap 9 mmol/L BUN 18 H (7-17) mg/dL Creatinine 0.69 (0.52-1.04) mg/dL Est GFR (CKD-EPI)AfAm >90 (>60 ml/min/1.73 sqM) Est GFR (CKD-EPI)NonAf >90 (>60 ml/min/1.73 sqM) Glucose 107 H (74-99) mg/dL Calcium 9.2 (8.4-10.2) mg/dL Magnesium 1.9 (1.6-2.3) mg/dL Total Bilirubin 0.8 (0.2-1.3) mg/dL AST 45 H (14-36) U/L ALT 33 (4-34) U/L Alkaline Phosphatase 75 (38-126) U/L Troponin I (0.000-0.034) ng/mL Total Protein 6.7 (6.3-8.2) g/dL Albumin 4.5 (3.5-5.0) g/dL 11/20/21 Range/Units 09:58 WBC (3.8-10.6) k/uL RBC (3.80-5.40) m/uL Hgb (11.4-16.0) gm/dL Hct (34.0-46.0) % MCV (80.0-100.0) fL MCH (25.0-35.0) pg MCHC (31.0-37.0) g/dL RDW (11.5-15.5) % Plt Count (150-450) k/uL MPV Neutrophils % % Lymphocytes % % Monocytes % % Eosinophils % % Basophils % % Neutrophils # (1.3-7.7) k/uL Lymphocytes # (1.0-4.8) k/uL Monocytes # (0-1.0) k/uL Eosinophils # (0-0.7) k/uL Basophils # (0-0.2) k/uL PT (9.0-12.0) sec INR (<1.2) APTT (22.0-30.0) sec Sodium (137-145) mmol/L Potassium (3.5-5.1) mmol/L Chloride (98-107) mmol/L Carbon Dioxide (22-30) mmol/L Anion Gap mmol/L BUN (7-17) mg/dL Creatinine (0.52-1.04) mg/dL Est GFR (CKD-EPI)AfAm (>60 ml/min/1.73 sqM) Est GFR (CKD-EPI)NonAf (>60 ml/min/1.73 sqM) Glucose (74-99) mg/dL Calcium (8.4-10.2) mg/dL Magnesium (1.6-2.3) mg/dL Total Bilirubin (0.2-1.3) mg/dL AST (14-36) U/L ALT (4-34) U/L Alkaline Phosphatase (38-126) U/L Troponin I <0.012 (0.000-0.034) ng/mL Total Protein (6.3-8.2) g/dL Albumin (3.5-5.0) g/dL Disposition Clinical Impression: Chest pain Disposition: ADMITTED IP TO THIS HOSP Condition: Stable Is patient prescribed a controlled substance at d/c from ED?: No Referrals: Clarisa Navarro DO [Primary Care Provider] - 1-2 days Time of Disposition: 11:43
[2021-11-20] MEDS ORDERED: PANTOPRAZOLE 40 MG/10 ML VIAL IV SCH (11:45)
[2021-11-20] MEDS: SODIUM CHLORIDE 0.9% 1,000 ML IV SCH (11:51)
[2021-11-20] MEDS ORDERED: SIMETHICONE 80 MG CHEWABLE PO PRN (20:18)
[2021-11-20] MEDS ORDERED: HYDROcodone/APAP 5-325MG 1 EACH TAB PO PRN (20:20)
[2021-11-20] MEDS: PANTOPRAZOLE 40 MG/10 ML VIAL IV SCH (22:03)
[2021-11-21] MEDS: SODIUM CHLORIDE 0.9% 1,000 ML IV SCH (02:08)
[2021-11-21] MEDS ORDERED: DOBUTamine DRIP for NUC MED 500 MG in DEXTROSE/WATER 1 250ML.BAG IV PRN (06:53)
--- NOTE | 2021-11-21 06:53 | P.CRDCN ---
History of Present Illness History of present illness: HISTORY OF PRESENTING ILLNESS This is a pleasant 61-year-old with past medical history significant for ADD, depression, anxiety who presents secondary to sudden onset of epigastric and substernal chest pain which feels like a burning sensation. 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 She did receive Maalox cocktail which did somewhat improve the discomfort however it has been consistent. She denies any association with any exertion. Denies any tobacco abuse, alcohol use, drugs, no family history. She did have prior stress test approximately 3 years ago. She has never had any ulcer or heartburn. Denies any recent fevers, chills, cough. Pain is somewhat better with lower sternal pr essure. EKG shows normal sinus rhythm without any ST or T-wave abnormalities. Troponins are normal 3. REVIEW OF SYSTEMS At the time of my exam: CONSTITUTIONAL: Denies fever or chills. CARDIOVASCULAR: +chest pain, no shortness of breath, orthopnea, PND or palpitations. RESPIRATORY: Denies cough. GASTROINTESTINAL: Denies abdominal pain, diarrhea, constipation, +nausea, no vomiting. MUSCULOSKELETAL: Denies myalgias. NEUROLOGIC: Denies numbness, tingling or weakness. ENDOCRINE: Denies fatigue, weight change, polydipsia or polyurina. GENITOURINARY: Denies burning, hematuria or urgency with micturation. HEMATOLOGIC: Denies history of anemia or bleeding. PHYSICAL EXAMINATION Vital signs reviewed. CONSTITUTIONAL: No apparent distress. HEENT: Head is normocephalic. Pupils are equal, round. Sclerae anicteric. Mucous membranes of the mouth are moist. No JVD. No carotid bruit. CHEST EXAMINATION: Lungs are clear to auscultation. No chest wall tenderness is noted on palpation or with deep breathing. HEART EXAMINATION: Regular rate and rhythm. S1, S2 heard. No murmurs, gallops or rub. ABDOMEN: Soft, nontender. Positive bowel sounds. EXTREMITIES: 2+ peripheral pulses, no lower extremity edema and no calf tenderness. NEUROLOGIC EXAMINATION: Patient is awake, alert and oriented x3. ASSESSMENT 1. Atypical chest pain may be more related to GI source 2. Episode of nauseous, diaphoresis, lightheadedness. May be vagal related to pain PLAN Acute coronary syndrome has been ruled out. Appears likely more related to GI source. We will check echo as well as dobutamine stress echo and if unrevealing patient may be discharged home. Further workup of GI source per primary team. Past Medical History Past Medical History: Cancer Additional Past Medical History / Comment(s): hx skin cancer, History of Any Multi-Drug Resistant Organisms: None Reported Past Surgical History: Ear Surgery, Hysterectomy Additional Past Surgical History / Comment(s): 2 ear surgeries Past Anesthesia/Blood Transfusion Reactions: No Reported Reaction Past Psychological History: No Psychological Hx Reported Smoking Status: Never smoker Past Alcohol Use History: None Reported Past Drug Use History: None Reported - Past Family History Father Family Medical History: Cancer Additional Family Medical History / Comment(s): leukemia Medications and Allergies Home Medications Medication Instructions Recorded Confirmed Type Methylphenidate HCl [Ritalin] 20 mg PO TID 12/03/18 11/20/21 History Escitalopram [Lexapro] 10 mg PO DAILY 11/20/21 11/20/21 History Glucosam/Ziggy-Msm1/C/Zeb/Bosw 1 tab PO DAILY 11/20/21 11/20/21 History [Glucosamine-Chondroitin Tablet] Allergies Allergy/AdvReac Type Severity Reaction Status Date / Time No Known Allergies Allergy Verified 11/20/21 12:13 Physical Exam Vitals: Vital Signs Temp Pulse Pulse Resp BP BP Pulse Ox 11/21/21 02:23 98.1 F 72 16 140/65 94 L 11/20/21 20:01 97.9 F 58 L 18 153/84 96 11/20/21 19:13 65 18 106/92 97 11/20/21 17:35 61 18 132/66 95 11/20/21 15:15 112 H 18 148/84 96 11/20/21 10:02 60 18 122/77 95 11/20/21 09:31 97.6 F 63 18 124/75 96 Intake and Output 11/20/21 11/20/21 11/21/21 14:59 22:59 06:59 Other: # Voids 1 1 Weight 81.647 kg Results 11/20/21 09:58 11/20/21 09:58 Cardiac Enzymes 11/20/21 11/20/21 11/20/21 Range/Units 09:58 09:58 12:43 AST 45 H (14-36) U/L Troponin I <0.012 <0.012 (0.000-0.034) ng/mL 11/20/21 Range/Units 15:55 AST (14-36) U/L Troponin I <0.012 (0.000-0.034) ng/mL Coagulation 11/20/21 Range/Units 09:58 PT 10.2 (9.0-12.0) sec APTT 23.2 (22.0-30.0) sec CBC 11/20/21 Range/Units 09:58 WBC 4.7 (3.8-10.6) k/uL RBC 4.42 (3.80-5.40) m/uL Hgb 13.8 (11.4-16.0) gm/dL Hct 39.1 (34.0-46.0) % Plt Count 258 (150-450) k/uL Comprehensive Metabolic Panel 11/20/21 Range/Units 09:58 Sodium 136 L (137-145) mmol/L Potassium 4.1 (3.5-5.1) mmol/L Chloride 102 (98-107) mmol/L Carbon Dioxide 25 (22-30) mmol/L BUN 18 H (7-17) mg/dL Creatinine 0.69 (0.52-1.04) mg/dL Glucose 107 H (74-99) mg/dL Calcium 9.2 (8.4-10.2) mg/dL AST 45 H (14-36) U/L ALT 33 (4-34) U/L Alkaline Phosphatase 75 (38-126) U/L Total Protein 6.7 (6.3-8.2) g/dL Albumin 4.5 (3.5-5.0) g/dL Current Medications Generic Name Dose Route Start Last Admin Trade Name Freq PRN Reason Stop Dose Admin Hydrocodone Bitart/Acetaminophen 1 each 11/20/21 20:20 Hydrocodone/Apap 5-325mg 1 Each Tab PO Q6HR PRN Pain Escitalopram Oxalate 10 mg 11/21/21 09:00 Escitalopram 10 Mg Tab PO DAILY DAVID Sodium Chloride 1,000 mls @ 75 mls/hr 11/20/21 11:45 11/21/21 02:08 Saline 0.9% IV 75 mls/hr .[id number] DAVID Administration Naloxone HCl 0.2 mg 11/20/21 11:37 Naloxone 0.4 Mg/Ml 1 Ml Vial IV Q2M PRN Opioid Reversal Ondansetron HCl 4 mg 11/20/21 11:37 Ondansetron 4 Mg/2 Ml Vial IVP Q8HR PRN Nausea And Vomiting Pantoprazole Sodium 40 mg 11/20/21 21:00 11/20/21 22:03 Pantoprazole 40 Mg/10 Ml Vial IV 40 mg BID DAVID Administration Simethicone 160 mg 11/20/21 20:18 11/20/21 22:03 Simethicone 80 Mg Chewable PO 160 mg TID PRN Administration Abdominal Distention Intake and Output 11/20/21 11/20/21 11/21/21 14:59 22:59 06:59 Other: # Voids 1 1 Weight 81.647 kg Patient Weight 11/21/21 06:59 Weight 81.647 kg 11/20/21 09:58 11/20/21 09:58
[2021-11-21] MEDS ORDERED: ESCITALOPRAM 10 MG TAB PO SCH (09:00)
[2021-11-21] MEDS: PANTOPRAZOLE 40 MG/10 ML VIAL IV SCH (09:06)
[2021-11-21] MEDS ORDERED: DOBUTamine DRIP for NUC MED 500 MG/250 ML BAG IV ONE (11:45)
[2021-11-21 13:20] VITALS: BP 113/66; PULSE 74; RESP 16; TEMP 97.7
--- NOTE | 2021-11-21 15:08 | P.HPIM ---
History of Present Illness H&P Date: 11/21/21 Chief Complaint: Midsternal burning History and Physical and Discharge Summary: This is a 61-year-old female with past medical history of ADD, presented to the emergency department complaining of midsternal burning that woke her from sleeping the previous night before, lasting 1 hour then resolved. Proceeded to work, works as a schoolteacher, symptoms recurred with additional symptoms of nausea, dizziness and diaphoresis. Denies chest pain, palpitations or shortness of breath. Denies family history of CAD. Denies history of hypertension, d iabetes, hyperlipidemia. Patient is a nonsmoker. Chest x-ray clear, EKG reported sinus rhythm, troponin negative. Received PPI, Maalox with significant improvement. Review of Systems ROS Statement: Those systems with pertinent positive or pertinent negative responses have been documented in the HPI. ROS Other: All systems not noted in ROS Statement are negative. Past Medical History Past Medical History: Cancer Additional Past Medical History / Comment(s): hx skin cancer, History of Any Multi-Drug Resistant Organisms: None Reported Past Surgical History: Ear Surgery, Hysterectomy Additional Past Surgical History / Comment(s): 2 ear surgeries Past Anesthesia/Blood Transfusion Reactions: No Reported Reaction Past Psychological History: No Psychological Hx Reported Smoking Status: Never smoker Past Alcohol Use History: None Reported Past Drug Use History: None Reported - Past Family History Father Family Medical History: Cancer Additional Family Medical History / Comment(s): leukemia Medications and Allergies Home Medications Medication Instructions Recorded Confirmed Type Methylphenidate HCl [Ritalin] 20 mg PO TID 12/03/18 11/20/21 History Escitalopram [Lexapro] 10 mg PO DAILY 11/20/21 11/20/21 History Glucosam/Ziggy-Msm1/C/Zeb/Bosw 1 tab PO DAILY 11/20/21 11/20/21 History [Glucosamine-Chondroitin Tablet] Pantoprazole Sodium [Protonix] 40 mg PO BID #60 tab 11/21/21 Rx Sucralfate [Carafate] 1 gm PO ACHS #120 tablet 11/21/21 Rx Allergies Allergy/AdvReac Type Severity Reaction Status Date / Time No Known Allergies Allergy Verified 11/20/21 12:13 Physical Exam Vitals: Vital Signs Temp Pulse Pulse Resp BP BP BP 11/21/21 13:18 97.7 F 74 16 113/66 10/11/22 07:00 98.1 F 56 L 18 126/67 11/21/21 02:23 98.1 F 72 16 140/65 11/20/21 20:01 97.9 F 58 L 18 153/84 11/20/21 19:13 65 18 106/92 11/20/21 17:35 61 18 132/66 11/20/21 15:15 112 H 18 148/84 Pulse Ox 11/21/21 13:18 96 11/21/21 07:00 95 11/21/21 02:23 94 L 11/20/21 20:01 96 11/20/21 19:13 97 11/20/21 17:35 95 11/20/21 15:15 96 Intake and Output 11/20/21 11/21/21 11/21/21 22:59 06:59 14:59 Other: # Voids 1 1 Physical Exam General: well nourished, well developed, NAD. Vitals reviewed Eyes: PERRL, EOMI, conjunctiva normal HENT: normocephalic, mucus membranes moist Neck: supple, no JVD Lungs: normal respiratory effort, no wheezes or rales CV: Regular rate and rhythm, no murmur. Peripheral pulses 2+ Abdomen: soft, nondistended, no organomegaly Lymph: no cervical or axillary LAD Skin: warm and dry. Results CBC & Chem 7: 11/20/21 09:58 11/20/21 09:58 Thrombosis Risk Factor Assmnt - Choose All That Apply Any of the Below Risk Factors Present?: Yes Each Factor Represents 1 point: Obesity (BMI >25) Other Risk Factors: Yes Each Risk Factor Represents 2 Points: Age 61-74 years Other congenital or acquired thrombophilia - If yes, enter type in comment: No Thrombosis Risk Factor Assessment Total Risk Factor Score: 3 Thrombosis Risk Factor Assessment Level: Moderate Risk Assessment and Plan Assessment: Atypical chest pain. Midsternal chest burning, relieved with PPI and Carafate ,suspect gastritis.ACS ruled out. Cardiology consulted. Echo/stress pending. Patient will be discharged home today in a stable condition with guarded prognosis pending stress test results, final DC recommendations encouraged per cardiology. Discharge Medication List Methylphenidate HCl [Ritalin] 20 mg PO TID 12/03/18 [History] Escitalopram [Lexapro] 10 mg PO DAILY 11/20/21 [History] Glucosam/Ziggy-Msm1/C/Zeb/Bosw [Glucosamine-Chondroitin Tablet] 1 tab PO DAILY 11/20/21 [History] Pantoprazole Sodium [Protonix] 40 mg PO BID #60 tab 11/21/21 [Rx] Sucralfate [Carafate] 1 gm PO ACHS #120 tablet 11/21/21 [Rx] The impression and plan of care has been dictated as directed. : I performed a history and examination of this patient, discussed the same with the dictator. I agree with the dictator's note ,documented as a scribe. Any additional findings or plans will be noted.
--- NOTE | 2021-11-22 12:34 | CA ---
Transthoracic Echo Report Name: Maru Kaiser Age: 61 Gender: F : 1960 Exam Date: 11/21/2021 11:47 Exam Location: [place] [facility] Ht (in): 68 Wt (lb): 180 Ordering Physician: Nikita Chapman DO Attending/Referring Phys: Family Practice Doctor April Paz RDCS Procedure CPT: Indications: re: CP Cardiac Hx: Technical Quality: Fair Contrast 1: Total Dose (mL): Contrast 2: Total Dose (mL): MEASUREMENTS (Male / Female) Normal Values 2D ECHO LV Diastolic Diameter PLAX 4.4 cm 4.2 - 5.9 / 3.9 - 5.3 cm LV Systolic Diameter PLAX 2.4 cm IVS Diastolic Thickness 1.2 cm 0.6 - 1.0 / 0.6 - 0.9 cm LVPW Diastolic Thickness 1.1 cm 0.6 - 1.0 / 0.6 - 0.9 cm LV Relative Wall Thickness 0.5 RV Internal Dim ED PLAX 3.1 cm LA Volume 60.6 cm??? 18 - 58 / 22 - 52 cm??? M-MODE Aortic Root Diameter MM 3.3 cm LA Systolic Diameter MM 4.1 cm LA Ao Ratio MM 1.2 AV Cusp Separation MM 2.6 cm DOPPLER AV Peak Velocity 106.7 cm/s AV Peak Gradient 4.6 mmHg LVOT Peak Velocity 91.0 cm/s LVOT Peak Gradient 3.3 mmHg MV Area PHT 2.1 cm??? Mitral E Point Velocity 68.8 cm/s Mitral A Point Velocity 106.6 cm/s Mitral E to A Ratio 0.6 MV Deceleration Time 359.9 ms MV E' Velocity 7.4 cm/s Mitral E to MV E' Ratio 9.3 TR Peak Velocity 228.2 cm/s TR Peak Gradient 20.8 mmHg Right Ventricular Systolic Press 25.3 mmHg FINDINGS Left Ventricle Mildly increased left ventricular wall thickness. Normal Left ventricular size, wall thickness, systolic function with no obvious regional wall motion abnormalities. Normal Left ventricular diastolic filling pattern. Left ventricular ejection fraction is estimated at 55-60 %. Right Ventricle Normal right ventricular size and function. Right ventricular systolic pressure within normal limits. Right Atrium Normal right atrial size. Left Atrium Mildly increased left atrial volume. Mildly increased left atrial area. Mitral Valve Structurally normal mitral valve. Mild mitral regurgitation. Aortic Valve No aortic valve stenosis or regurgitation. Tricuspid Valve Structurally normal tricuspid valve. Mild tricuspid regurgitation. Pulmonic Valve Trace pulmonic regurgitation. Pericardium No pericardial effusion. Aorta Normal size aortic root and proximal ascending aorta. CONCLUSIONS Mild LVH Normal left ventricular ejection fraction 55-60% Mildly dilated left atrium Mild mitral regurgitation Mild tricuspid regurgitation No pericardial effusion Previewed by: Dr. Nikita Chapman DO (Electronically Signed) Final Date: 22 November 2021 12:33
--- NOTE | 2021-11-22 12:45 | CA ---
Stress Echo Report Maru Kaiser Age: 61 Gender: F : 1960 Exam Date: 11/21/2021 11:29 Exam Location: [place] [facility] Ht (in): 68 Wt (lb): 180 Ordering Physician: Nikita Chapman DO Referring Physician: YAKELIN,, Supervisor Assembly Department: April Paz RDCS Technologist Procedure CPT: Indication: re: CP ICD-9 Codes: Rhythm: Patient History: Chest Pain Cardiac Medications: Medications in past 24 hours: Contrast: Stress Results Protocol: Calos Total dose(mL): Exercise Duration (min:sec): Max ST Depression (mm): Angina Score: Elizabeth Score: METS: 9.8 Resting HR: 59 Resting BP: 144 / 73 Peak HR: 149 Peak BP: 191 / 56 Max Predicted HR: 157 95 % Max Predicted HR Target HR: 133 Double Product: 28348 Stress Summary: BP Response: Reason for Termination: TARGET HR REACHED/MAX EXERTION Cardiac Symptoms: NO SYMPTOMS ECG Analysis Resting ECG: Stress ECG: Arrhythmia: Echo Analysis Resting Echo: Peak Echo Analysis: MEASUREMENTS (Male/Female) Normal Values CONCLUSIONS Patient underwent exercise stress echo with a Calos protocol treadmill stress test. Patient exercised into Stage 2 for a total of 7 minutes 30 seconds reaching a total of 9.8 METS. Patient's maximum heart rate was 149 which represented 94 % age- predicted maximum heart rate. Stress EKG portion: At baseline patient's EKG showed normal sinus rhythm, normal axis, no significant ST or T wave abnormalities. At peak exercise, EKG showed nonspecific and nondiagnostic upsloping 0.[address] depressions in the lateral leads. Stress echo portion: 2-D echocardiogram was performed in the parasternal long, personal short, apical 2 and apical four-chamber views at rest, peak exercise and in recovery. At baseline, echocardiogram showed left ventricular ejection fraction 55-60% without wall motion abnormalities. With peak exercise, echocardiogram shows improvement in left ventricular ejection fraction, increase contractility, decrease in left ventricular end systolic dimension without wall motion abnormalities consistent with a normal response to exercise. Conclusions: 1. Normal EKG and echo response to exercise without evidence of inducible ischemia. 2. Fair exercise capacity. 3. Normal left ventricular ejection fraction 55-60% Dr. Nikita Chapman DO (Electronically Signed) Final Date: 21 November 2021 12:56
== END 2021-11-21 13:34 | disposition home or self-care (01) ==
LOC: EC 09:28 → 6NMEDSUR 11:37
PROVIDERS: ADMIT Family Medicine; ATTEND Family Medicine
DX: R07.89 Other chest pain (principal); R42 Dizziness and giddiness; R61 Generalized hyperhidrosis; R11.0 Nausea; F32.A Depression, unspecified; F41.9 Anxiety disorder, unspecified; F90.9 Attention-deficit hyperactivity disorder, unspecified type; E66.9 Obesity, unspecified; Z68.27 Body mass index [BMI] 27.0-27.9, adult; Z79.82 Long term (current) use of aspirin; Z79.899 Other long term (current) drug therapy; Z85.828 Personal history of other malignant neoplasm of skin; Z90.710 Acquired absence of both cervix and uterus; Z98.890 Other specified postprocedural states; Z80.6 Family history of leukemia
CPT/HCPCS: 96376 ×2; 96361; 96374; 99285; 36415; 93005; 93306; 93351; 80053; 83735; 84484; 85025; 85610; 85730; 71046; G0378 ×2; J1250; C9113 ×2

== ENCOUNTER → 2022-02-28 | Outpatient (CLI) | payer BC ==
--- NOTE | 2022-03-01 17:41 | MM ---
Reason for Exam: Screening (asymptomatic). Last mammogram was performed 4 year(s) and 3 month(s) ago. Patient History: Menarche at age 10. First Full-Term at age 22. Hysterectomy at age 44. Postmenopausal. Other cancer, age 44. Patient used Hormonal Contraceptives for 10 years. Risk Values: María 5 year model risk: 1.4%. NCI Lifetime model risk: 6.0%. Prior Study Comparison: 01/07/2015 Bilateral Screening Mammogram, [facility]. 11/19/2016 Bilateral Screening Mammogram, [facility]. 11/22/2017 Bilateral Screening Mammogram, [facility]. Tissue Density: The breast tissue is heterogeneously dense. This may lower the sensitivity of mammography. Findings: Analyzed By CAD. Pattern appears symmetrical and stable. Benign vascular calcifications present bilaterally. No suspicious groups of microcalcifications, spiculated or lobular masses, architectural distortion or other secondary signs of malignancy are mammographically apparent. Overall Assessment: Benign, BI-RAD 2 Management: Screening Mammogram of both breasts in 1 year. A negative mammogram report should not preclude additional follow up of suspicious palpable abnormalities. Patient should continue monthly self breast exam. A clinical breast exam by your physician is recommended on an annual basis and results should be correlated with mammographic findings. Electronically signed and approved by: Roger Lucia D.O. Radiologis
== END | disposition home or self-care (01) ==
LOC: RADMAMWWP 15:52
PROVIDERS: ATTEND Family Medicine
DX: Z12.31 Encounter for screening mammogram for malignant neoplasm of breast (principal); Z78.0 Asymptomatic menopausal state
CPT/HCPCS: 77063; 77067